=== PATIENT | male | born 1980 | race Hispanic/Latino ===

== ENCOUNTER 2018-12-14 19:43 | Emergency (ER) | payer MEDICAID ==
[2018-12-14 20:10] VITALS: BP 124/79; PULSE 80; RESP 18; TEMP 98.7; O2SAT 98
--- NOTE | 2018-12-14 20:19 | ED PDOC ---
Lower Extremity Pain/Injury Time Seen by Provider: 12/14/18 20:10 Chief Complaint (Nursing): Lower Extremity Problem/Injury Chief Complaint (Provider): Lower Extremity Problem/Injury History Per: Patient History/Exam Limitations: no limitations Onset/Duration Of Symptoms: Days (x3) Current Symptoms Are (Timing): Still Present Additional Complaint(s): 38 year old male presents to the ED with right ankle pain since Monday night. Patient report he was playing basketball when his foot landed on someone else's foot causing it to bend inward. PMD: none provided Past Medical History Reviewed: Historical Data, Nursing Documentation, Vital Signs Vital Signs: Last Vital Signs Temp 98.7 F 12/14/18 20:09 Pulse 80 12/14/18 20:09 Resp 18 12/14/18 20:09 BP 124/79 12/14/18 20:09 Pulse Ox 98 12/14/18 20:09 - Medical History PMH: No Chronic Diseases - Surgical History Surgical History: No Surg Hx - Family History Family History: States: Unknown Family Hx - Allergies Allergies/Adverse Reactions: Allergies Allergy/AdvReac Type Severity Reaction Status Date / Time No Known Allergies Allergy Verified 12/14/18 20:07 Review of Systems ROS Statement: Except As Marked, All Systems Reviewed And Found Negative Musculoskeletal: Positive for: Other (Right ankle pain) Physical Exam - Reviewed Nursing Documentation Reviewed: Yes Vital Signs Reviewed: Yes - Physical Exam Appears: Positive for: Non-toxic, No Acute Distress Head Exam: Positive for: ATRAUMATIC, NORMOCEPHALIC Skin: Positive for: Normal Color, Warm, Dry Eye Exam: Positive for: Normal appearance Neck: Positive for: Normal, Painless ROM Cardiovascular/Chest: Positive for: Regular Rate, Rhythm Respiratory: Positive for: Normal Breath Sounds. Negative for: Wheezing, Respiratory Distress Extremity: Positive for: Other ((+) tenderness posterior medial and lateral malleolus; (+) ATF tenderness to palpation; (+) navicular tenderness; (-) 5th metatarsal tenderness; (-) distal tib fib tenderness) Neurologic/Psych: Positive for: Alert, Oriented. Negative for: Motor/Sensory Deficits - ECG O2 Sat by Pulse Oximetry: 98 (RA) Pulse Ox Interpretation: Normal Medical Decision Making Medical Decision Making: Initial Plan: --Right ankle X-ray 20:40 Right ankle X-ray shows ankle is intact with no dislocation and fractures. 20:51 Gave funmilayo wrap and crutches. Patient is stable for discharge. Scribe Attestation: Documented by Moose Mishra acting as a scribe for Steve DONOVAN. Provider Scribe Attestation: All medical record entries made by the Scribe were at my direction and personally dictated by me. I have reviewed the chart and agree that the record accurately reflects my personal performance of the history, physical exam, medical decision making, and the department course for this patient. I have also personally directed, reviewed, and agree with the discharge instructions and disposition. [facility] Ankle Rules - Malleolar zone tenderness? Posterior edge or tip of lateral malleolus: Yes Posterior edge or tip of medial malleolus: Yes - Midfoot zone tenderness? Base of 5th Metatarsal: No Navicular: Yes - XRAY INDICATED Is an ankle x-ray indicated based on findings?: Yes Disposition - Clinical Impression Clinical Impression: Ankle injury, Ankle sprain and strain Doctor Will See Patient In The: Office Counseled Patient/Family Regarding: Diagnosis, Need For Followup - Disposition Referrals: [facility] [place] [Outside] Disposition: Routine/Home Disposition Time: 20:56 Condition: STABLE Instructions: Ankle Sprain, Ankle Sprain (DC), Sprain (DC) Forms: [employer] ([place])
--- NOTE | 2018-12-15 10:05 | RAD ---
Date of service: 12/14/2018 PROCEDURE: Right Ankle Radiographs. HISTORY: R/O FX COMPARISON: None available. FINDINGS: BONES: There is a very tiny elliptical shaped radiopaque density within the soft tissues subjacent to and possibly abutting the inferior tip of the lateral malleolus. This could represent some old posttraumatic mineralization however possibility of a very tiny sintia of bone secondary to avulsion injury not excluded. Repeat radiographs in 7-10 days recommended to assess for periosteal reaction which should occur if this fact represents a small avulsion fracture. There is a moderate lateral soft tissue swelling. Minor medial soft tissue swelling. JOINTS: Normal. No osteoarthritis. Ankle mortise maintained. Talar dome intact SOFT TISSUES: Normal. OTHER FINDINGS: None. IMPRESSION: There is a very tiny elliptical shaped radiopaque density within the soft tissues subjacent to and possibly abutting the inferior tip of the lateral malleolus. This could represent some old posttraumatic mineralization however possibility of a very tiny sintia of bone secondary to avulsion injury not excluded. Repeat radiographs in 7-10 days recommended which should develop if this in fact represents a small avulsion fracture. There is a moderate lateral soft tissue swelling. Minor medial soft tissue swelling.. Note that this report was placed in [place] review folder for follow up.
== END 2018-12-14 21:02 | disposition home or self-care (01) ==
LOC: MERGE 19:43 → H.ER 19:43
DX: S93.401A Sprain of unspecified ligament of right ankle, initial encounter (principal); X50.9XXA Other and unspecified overexertion or strenuous movements or postures, initial encounter; Y93.67 Activity, basketball